=== PATIENT | male | born 1990 | race African-American/Black ===

== ENCOUNTER 2019-03-08 14:25 | Emergency (ER) | payer MEDICAID, OTHER ==
[~2019-03-08] VITALS: Ht 190.5 cm; Wt 68.0 kg
[2019-03-08 14:33] VITALS: BP 128/91
== END 2019-03-08 16:30 | disposition home or self-care (01) ==
LOC: ER 14:25
DX: M25.512 Pain in left shoulder (principal); V49.49XA Driver injured in collision with other motor vehicles in traffic accident, initial encounter; Y93.89 Activity, other specified; Y92.410 Unspecified street and highway as the place of occurrence of the external cause
CPT/HCPCS: 73030; 99283